=== PATIENT | female | born 1980 | race Caucasian/White ===

== ENCOUNTER 2020-05-08 10:47 | Inpatient (IN) | payer OTHER ==
[~2020-05-08] VITALS: Ht 170.2 cm; Wt 70.3 kg
[2020-05-10] MEDS ORDERED: FUSION PLUS CA1 EACH PO ×2 (14:50→14:58)
[2020-05-10] MEDS ORDERED: V R FATIGUE RE PO ×2 (14:51→14:55)
[2020-05-10] MEDS ORDERED: VITAMIN B-1100 MG PO ×2 (14:53→14:58)
[2020-05-10] MEDS ORDERED: FAMOTIDINE20 MG PO (14:54)
== END 2020-05-10 15:27 | disposition home or self-care (01) | DRG 812 ==
LOC: ER 10:47 → SURH 17:12 → SEC-K 17:12 → SURH 22:32
PROVIDERS: ADMIT Internal Medicine Cardiovascular Disease; ATTEND Internal Medicine Cardiovascular Disease
PROC: 30233N1 Transfusion of Nonautologous Red Blood Cells into Peripheral Vein, Percutaneous Approach (ICD-10-PCS; principal; 2020-05-08)
PROC: 4A12X4Z Monitoring of Cardiac Electrical Activity, External Approach (ICD-10-PCS; 2020-05-09)
PROC: B24BYZZ Ultrasonography of Heart with Aorta using Other Contrast (ICD-10-PCS; 2020-05-10)
DX: D50.8 Other iron deficiency anemias (principal); Z20.822 Contact with and (suspected) exposure to COVID-19